=== PATIENT | male | born 1975 | race Two or more races ===

== ENCOUNTER 2022-05-08 19:02 | Emergency (ER) | payer OTHER ==
[~2022-05-08] VITALS: Ht 175.3 cm; Wt 95.3 kg
== END 2022-05-08 20:24 | disposition home or self-care (01) ==
LOC: ER 19:02
DX: S40.021A Contusion of right upper arm, initial encounter (principal); S40.011A Contusion of right shoulder, initial encounter; W18.30XA Fall on same level, unspecified, initial encounter; Y93.89 Activity, other specified; Y92.59 Other trade areas as the place of occurrence of the external cause; Y99.9 Unspecified external cause status